=== PATIENT | male | born 1960 | race Caucasian/White ===

== ENCOUNTER 2021-08-23 19:17 | Inpatient (IN) | payer BC ==
[~2021-08-23] VITALS: Ht 180.3 cm; Wt 97.1 kg
[2021-08-23 22:33] LABS: HEMOGLOBIN 14.1 gm/dl (14.0-17.5); RED BLOOD COUNT 5.07 M/UL (4.20-5.50)
[2021-08-23 23:11] LABS: BUN/CREATININE RATIO 14 (0-10)
[2021-08-24] MEDS ORDERED: NITROGLYCERIN0.4 MG SL (10:41)
[2021-08-24] MEDS ORDERED: ASPIRIN EC81 MG PO (11:11)
[2021-08-24] MEDS ORDERED: NEXIUM20 MG PO (11:11)
[2021-08-25 03:48] LABS: HEMOGLOBIN 14.2 gm/dl (14.0-17.5); RED BLOOD COUNT 4.93 M/UL (4.20-5.50); WHITE BLOOD COUNT 8.1 K/UL (4.5-11.0)
[2021-08-25 04:11] LABS: BUN/CREATININE RATIO 16 (0-10)
[2021-08-25] MEDS ORDERED: ATORVASTATIN CA20 MG PO (17:33)
[2021-08-25] MEDS ORDERED: RANEXA500 MG PO (17:33)
[2021-08-25] MEDS ORDERED: LOPRESSOR 25 MG25 MG PO ×2 (17:33→17:34)
== END 2021-08-25 19:00 | disposition home or self-care (01) | DRG 303 ==
LOC: EROP 19:17 → ER1 19:17 → EDSTATUS 20:47 → ER1 08-24 00:41 → CDU 08-24 00:41 → PROG CARE 08-24 07:18 → CDU 08-24 07:18 → PROG CARE 08-25 02:00 → CDU 08-25 02:00 → PROG CARE 08-25 19:00
PROVIDERS: Physician Assistant Medical; ADMIT Internal Medicine
DX: I25.110 Atherosclerotic heart disease of native coronary artery with unstable angina pectoris (principal); E78.5 Hyperlipidemia, unspecified; Z95.5 Presence of coronary angioplasty implant and graft; Z87.891 Personal history of nicotine dependence; Z82.49 Family history of ischemic heart disease and other diseases of the circulatory system; Z90.49 Acquired absence of other specified parts of digestive tract
CPT/HCPCS: 36415; 71045; 80053; 80061; 82550; 82553; 83874; 83880; 84484; 85025; 85610; 85730; 93005; 99285; G0378; J0456; J0696; J1100; J1644; J7030; U0002